=== PATIENT | male | born 1945 | race Caucasian/White ===

== ENCOUNTER 2016-07-05 11:19 | Outpatient (CLI) | payer MEDICARE, MEDICAID | END 2016-07-05 23:59 | disposition home or self-care (01) | LOC: NM 11:19 | PROVIDERS: ATTEND Internal Medicine Hematology & Oncology | DX: C41.9 Malignant neoplasm of bone and articular cartilage, unspecified (principal) | CPT/HCPCS: 78306; A9503 ==

== ENCOUNTER 2016-09-26 12:53 | Outpatient (CLI) | payer MEDICARE, MEDICAID ==
[2016-09-26 13:32] LABS: BASOPHILS % (AUTO) 0.5 % (0.0-2.0); EOSINOPHILS # (AUTO) 0.1 /CMM (0.0-0.7); EOSINOPHILS % (AUTO) 1.9 % (0.0-6.0); HEMATOCRIT 23 % (39-51); HEMOGLOBIN 7.8 g/dL (13.5-17.5); LYMPHOCYTES % (AUTO) 26.9 % (20.0-44.0); MEAN CORPUSCULAR HEMOGLOBIN 32 PG (26.0-33.0); MEAN CORPUSCULAR HGB CONC 33 g/dl (31.0-36.0); MEAN CORPUSCULAR VOLUME 95 fL (80-96); MONOCYTES # (AUTO) 0.4 /CMM (0.1-1.30); MONOCYTES % (AUTO) 11.4 % (2.0-12.0); NEUTROPHILS # (AUTO) 2.2 /CMM (1.8-8.9); NEUTROPHILS % (AUTO) 59.3 % (43.0-81.0); PLATELET COUNT (AUTO) 152 /CMM (150-450); RDW COEFFICIENT OF VARIATION 19.8 (11.5-15.0); RED BLOOD CELL COUNT(AUTO) 2.48 MIL/uL (4.5-6.0); WHITE BLOOD COUNT (AUTO) 3.7 K/uL (4.3-11.0)
[2016-09-26 13:46] LABS: ALBUMIN 3.2 g/dL (3.4-5.0); BILIRUBIN,TOTAL 0.2 mg/dL (0.2-1.0); CALCIUM, SERUM 8.2 mg/dL (8.5-10.1); CREATININE 1.6 mg/dL (0.6-1.3); POTASSIUM 4.1 mmol/L (3.5-5.1); TOTAL PROTEIN, SERUM 6.5 g/dL (6.4-8.2)
[2016-09-26 13:50] LABS: INR 0.9 (0.87-1.13); PROTHROMBIN TIME 9.6 SECS (9.5-12.7)
[2016-09-26 13:56] LABS: EOSINOPHILS % (MANUAL) 2 % (0-4); LYMPHOCYTES % (MANUAL) 22 % (16-48); MONOCYTES % (MANUAL) 10 % (0-11.0); NEUTROPHILS % (MANUAL) 66 (42-76); PLATELET ESTIMATE ADEQUATE
[2016-09-26 13:57] LABS: ANISOCYTOSIS 1+
== END 2016-09-26 23:59 | disposition home or self-care (01) ==
LOC: LAB 12:53
PROVIDERS: ATTEND Internal Medicine Hematology & Oncology
DX: C79.31 Secondary malignant neoplasm of brain (principal); C83.00 Small cell B-cell lymphoma, unspecified site; I82.90 Acute embolism and thrombosis of unspecified vein
CPT/HCPCS: 36415; 80053-TC; 85025-TC; 85610-TC; 85730-TC